=== PATIENT | female | born 1990 | race Caucasian/White ===

== ENCOUNTER → 2016-03-24 | Outpatient (CLI) | payer BC, MEDICAID ==
[~2016-03-24] MED LIST: ABILIFY2 MG PO; ACETAMINOPHEN-H1 TA2 PO; ADIPEX-P37.5 M2 PO; BACTRIM 400 MG-1 TAB PO; BACTRIM DS 8001 TA1 PO; BISOPROLOL 5MG T5 MG PO; BROMFED DM COU118 ML PO; CELEXA20 MG PO; COLACE100 MG PO; DILAUDID4 MG PO; DOXEPIN50 MG PO; FERROUS SULFAT325 M2 PO; FOLIC ACID 1MG T1 MG PO; HYDROCHLOROTH12.5 M2 PO; KEFLEX 500MG.500 MG PO; LAMOTRIGINE100 M1 PO; LEXAPRO 10 MG T10 MG PO; LISINOPRIL2.5 M1 PO; MACROBID 100MG100 M1 PO; MACROBID 100MG100 MG PO; MEDROL 4MG. DOSE4 MG PO; NEXPLANON68 MG ID; NOMEDS; OMEPRAZOLE20 MG PO; PEPCID 20MG TAB20 MG PO; PHENAZOPYRIDIN200 M3 PO; PHENERGAN 25MG.25 M1 PO; PHENERGAN12.5 M2 RC; PRENATAL PLUS1 TA1 PO; PROTONIX 40MG T40 MG PO; SEROQUEL300 MG PO; STOMACH PILL PO; TOPAMAX100 MG PO; TYLENOL W/CODEI1 TA2 PO; VENLAFAXINE HC100 MG PO; VICODIN 5/500 T1 TAB PO; ZITHROMAX Z PA250 MG PO; ZOFRAN ODT4 MG PO
--- NOTE | 2016-03-24 16:39 | RADIOLOGY REPORT PS360 ---
US ABD(COMPLETE-MULTI ORGANS HISTORY: SPIENOMEGALY,BRUISING COMPARISON: None FINDINGS: PANCREAS:Unremarkable. No obvious mass or abnormal fluid collection. No ductal dilatation LIVER:Diffuse hepatic steatosis RIGHT KIDNEY:Unremarkable. Normal size and echogenicity. No hydronephrosis LEFT KIDNEY:Unremarkable. No hydronephrosis. Normal size and echogenicity. GALLBLADDER:Cholecystectomy. Common bile duct normal at 3 mm. AORTA:No evidence of aneurysmal dilatation. SPLEEN:Borderline splenomegaly at 13 cm ASCITES:None demonstrated. IMPRESSION: 1. Fatty liver. 2. Spleen size upper limits of normal
== END ==
LOC: RAD 10:27
DX: R16.1 Splenomegaly, not elsewhere classified (principal); T14.8 Other injury of unspecified body region

== ENCOUNTER → 2016-10-18 | Outpatient (CLI) | payer BC, MEDICAID ==
[2016-10-18 14:39] LABS: LYMPH # 2.6 K/mm3 (0.7-4.5); LYMPH % 32.5 % (10-50.0)
[2016-10-18 14:42] LABS: URINE BILIRUBIN - DIPSTICK NEGATIVE (NEG); URINE BLOOD NEGATIVE (NEG)
[2016-10-18 14:59] LABS: HEMOGLOBIN 13.3 g/dL (12.2-16.2)
[2016-10-18 17:22] LABS: BUN 15 mg/dL (7-18)
[2016-10-18 17:58] LABS: GFR (ESTIMATED) 87 ML/MIN (59-)
== END ==
LOC: LAB 14:00
PROVIDERS: Surgery
DX: R10.9 Unspecified abdominal pain (principal); R11.2 Nausea with vomiting, unspecified; T14.8 Other injury of unspecified body region; R14.0 Abdominal distension (gaseous)

== ENCOUNTER → 2016-10-25 | Outpatient (CLI) | payer BC, MEDICAID ==
--- NOTE | 2016-10-25 13:18 | RADIOLOGY REPORT PS360 ---
UGI SERIES W/SMALL BOWEL HISTORY: ABD PAIN, N/V, HEMATURIA, ABD BLOATING ORDERING PHYSICIAN: RODERICK NORTH MD PATIENT AGE: 26 years COMPARISON: None FINDINGS: The esophagus, stomach, and duodenum have an unremarkable appearance. There is no evidence of hiatal hernia. No ulcer or mass evident. No mucosal abnormalities apparent. There is normal peristalsis. The duodenal C-loop is nondisplaced. SMALL BOWEL FOLLOW-THROUGH: Small bowel has an unremarkable appearance. No obstructing lesions mucosa left amount disease or filling defects are evident. Spot views of the terminal ileum are unremarkable. FLUOROSCOPY TIME : 3 minutes and 3 seconds. IMPRESSION: Negative upper GI and small bowel follow-through
== END ==
LOC: RAD 10:55
DX: R10.9 Unspecified abdominal pain (principal); R11.2 Nausea with vomiting, unspecified; T14.90 Injury, unspecified; R14.0 Abdominal distension (gaseous)

== ENCOUNTER 2017-01-09 15:12 | Emergency (ER) | payer BC, MEDICAID ==
[~2017-01-09] VITALS: Ht 162.6 cm; Wt 113.4 kg
[2017-01-09] MEDS ORDERED: METOPROLOL SUCC50 M4 PO (15:25)
[2017-01-09] MEDS ORDERED: LOSARTAN POTAS100 MG PO (15:25)
[2017-01-09] MEDS ORDERED: PRAZOSIN HCL1 MG PO (15:26)
[2017-01-09] MEDS ORDERED: INDERAL10 MG PO (15:26)
[2017-01-09] MEDS ORDERED: QUETIAPINE FUM200 M1 PO (15:26)
[2017-01-09] MEDS ORDERED: VENLAFAXINE150 M1 PO (15:27)
[2017-01-09] MEDS ORDERED: ETHINYL ESTRADI1 TA1 PO (15:27)
--- NOTE | 2017-01-09 15:48 | Emergency Room Report ---
History of Present Illness Time Seen by [id number] Presenting Problem in Triage Pt arrived:Walked Presenting Problem:PT REPORTS HAS BEEN HAVING PAIN IN THE BACK OF HER HEAD FOR APPROX 1 MONTH PT REPORTS TODAY AROUND 1100 BEGAN HAVING NUMBNESS ALL OVER FACE. PT REPORTS NUMBNESS FEELING IS WORSE ON THE L THAN THE RIGHT. Onset of symptoms date/time:01/09/1708/20/1099 or onset unknown for: Treatment Prior to Arrival: [employer] Provided by: Sepsis Risk Assessment: Temp: 98.0 B/P: 128/81 MAP: 96 Pulse: 103 Resp: 18 Recent fever? N Clinical Suspician of Infection? N Mental Status: 1 - Regular (Normal Baseline) Sepsis Risk:Low Sepsis Risk Have you (or family members/close friends) recently traveled outside the [place]? N If Yes, where/when: Have you had exposure to infectious disease within the past month? N TB? Other? Specify: Posterior headache, worse with palpation of that area, x one month. Denies jaw pain but states her left face felt numb earlier today, but not now. Very gradual onset. Has hx of migraines but posterior pain is new. Pain radiates to posterior head but no neck stiffness or rash. No n/v, no photophobia or syncope, no other neurological sx. No fever. No odontalgia. No trauma. No change in vision. Has not taken anything for headache. ALLERGIES Coded Allergies: ceftriaxone (From Rocephin) (Severe, S-DIFF. BREATHING 04/17/16) lisinopril (FACIAL SWELLING 04/17/16) Home Medications Reported Medications Losartan Potassium (Losartan 100MG) 100 MG PO DAILY #30 Metoprolol Succinate (Metoprolol Succinate XL) 50 MG PO DAILY #30 Propranolol Hcl (Inderal) 10 MG PO DAILY #90 Quetiapine Fumarate 200 MG PO DAILY #30 Prazosin Hcl 1 MG PO QHS #30 NORETHINDRONE AC-ETH ESTRADIOL (Norethind-Eth Estrad 1-0.02 MG) 1 TAB PO QHS #84 VENLAFAXINE HCL (Venlafaxine HCl ER) 150 MG PO QHS #30 History Medical History General CAD? No Angina: No [place]: No Hypertension? Yes Hyperlipidemia? No CHF? No DVT? No PE? No COPD? No Asthma? No Anemia? No GERD? Yes Gastric ulcers? No GI Bleed? No Hernia? No Thyroid Problems? No Hypothyroidism? No CVA? No Seizures? No Diabetes? No Renal Insuffiency? No End Stage Renal Disease? No UTI? No Stones? No BPH? No GB Disease: Yes Nephritic Syndrome? No Asplenia? No Hepatitis? No Sickle Cell Disease? No Arthritis? No Migraines? No Cataracts? No Glaucoma? No MRSA? No HIV? No TB? No Anxiety? No Depression? No Cancer? No More? 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 Now Family History Family Hx Diabetes Yes CAD Yes Hypertension Yes Hyperlipidemia Yes Cancer Yes TB No Social History Smoking Hx Smoker: Never Smoker Tobacco: No Alcohol Alcohol: No Review of Systems All Other Systems Reviewed and Negative Musculoskeletal see HPI Psychiatric/Neurological see HPI Physical Exam Vital Signs Vital Signs Date Time Temp Pulse Resp B/P Pulse O2 O2 Flow FiO2 Ox Delivery Rate 01/09 1706 95 18 114/82 97 01/09 1703 18 01/09 1516 98.0 103 18 128/81 97 General Appearance normal appearance, WD/WN, no apparent distress Eye Exam - bilateral eye normal exam, bilateral eye PERRL, bilateral eye EOMI Neck normal inspection, non-tender, supple, full range of motion, tender posterior scalp with palpation, no visible rashes, no neck stiffness or meningismus but pain radiates to inferior occipital area. Respiratory Status Yes: trachea midline, chest symmetrical, non tender chest. No: respiratory distress, tender on palpation, use of accessory muscles, pain on inspiration, pain on expiration, productive cough, non productive cough. Lung Sounds bilateral: normal breath sounds, lungs clear. 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 Glascow Coma Scale Glascow Coma Scale Response Value EYE response: 4 Spontaneously 4 MOTOR response: 6 OBEYS 6 VERBAL response: 5 Oriented & Converses 5 Total 15 Reflexes DTR 3+ tricep (R), 3+ tricep (L), 3+ ankle (R), 3+ ankle (L) Mental status normal mood/affect Skin intact, normal color, no rash cons.w/shingles (atraumatic) Medical Decision Making LABS/Meds/Orders Pt receiving controlled substance in ED? No Results/Orders Current Medication Orders Sig/Brandon Start time Last Medication Dose Route Stop Time Status Admin Ketorolac 0 .STK-MED ONE 01/09 1702 DC Tromethamine .ROUTE Ketorolac 60 MG ONCE ONE 01/09 1700 DC 01/09 Tromethamine IM 01/09 170 1703 Orders Procedure Date/time Status DIET-NOTHING BY MOUTH 01/09 D Active URINE 01/[address] HEAD REQ 01/[address] SCAN REQ 01/09 1534 Complete XRAY/CT/US XRAY/CT/US CT head, C-spine CT interpretation by reviewed by me (report reviewed) Time results known: 1711 CT Results normal/NAD, muscle spasm, neg acute per report Progress ED Progress Notes Date 01/09/17 Time 171 Comment JOHNSON better; stable at d/c Departure Departure Time of Disposition 1712 Disposition DC Home or Self Care(routine) Clinical Impression Primary Impression: Cephalgia Qualifiers: Headache type: tension-type Headache chronicity pattern: acute headache Intractability: not intractable Qualified Code: G44.209 - Tension-type headache, unspecified, not intractable Condition STABLE Referrals Esau TORRES,A.C. (Family) Patient Instructions Tension Headache Additional Instructions Rx Naproxen, see Dr. Cifuentes next week for follow up Discharge Counseling Counseled pt/family regarding diagnosis, test results, medications/RX, home care, follow up needs Prescriptions Current Visit Scripts NAPROXEN (NAPROXEN 500MG TAB) 500 MG PO BIDP PRN pain #20 TAB ED Critical Care Critical Care No at 1830
--- OUTSIDE RECORDS SUMMARY | 2017-01-09 15:52 | External Medical Summary Rpt | CCD ---
Author Author , GETACHEW Organization [facility] Address Unknown Phone Care Team Providers Care Lease Administrator Name Role Phone A Taylor GARCIA MD PSC, A Unavailable Unavailable Taylor GARCIA MD PSC Shaquille Powell MD, Unavailable Unavailable Shaquille Powell MD [facility] Unavailable Unavailable HOSPITA, [facility] DUANE CAI MD, Unavailable Unavailable DUANE CAI MD [facility] Unavailable Unavailable INC, [facility] Unavailable Unavailable [facility], [facility] Unavailable Unavailable [facility]PITAL P, [facility], [facility]available Unavailable [facility], Unavailable Unavailable [facility] Unavailable Unavailable PHYSICIANS, [facility], [facility]available Unavailable [facility], Unavailable Unavailable [facility] Jeremiah Singletary Unavailable Unavailable BARON TORRES, Jeremiah Singletary III, MD Purpose Continuity of Care Document - 09-01-2012 through 2016 Problems Code Diagnosis DOS Provider Status R945 ABNORMAL 11-02-2016 [facility] LIVER HOSPITA FUNCTION STUDIES I10 ESSENTIAL 10-14-2016 [facility] HYPERTENSIO JODI N K625 HEMORRHAGE 10-14-2016 . [facility] [place] RECTUM JODI [id number] OTHER LONG 10-14-2016 [facility] TERM [place] CURRENT J[place]I DRUG THERAPY R42 DIZZINESS 09-14-2016 Sean PEREZ PSC GIDDINESS R51 HEADACHE 09-14-2016 Sean GARCIA MD PSC [id number] ABRASION OF 09-14-2016 Sean GARCIA RIGHT HAND PSC INITIAL ENCOUNTER [id number] ABRASION 09-14-2016 Sean GARCIA LEFT KNEE [facility] INITIAL ENCOUNTER Z23 ENCOUNTER 09-14-2016 Sean MCGREGOR MD [facility] IMMUNIZATIO N J069 ACUTE UPPER 06-07-2016 [facility] RESPIRATORY INC INFECTION UNSPECIFIED 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 OBSTRUCTIVE 05-27-2016 [facility] SLEEP EAST APNEA ADULT PEDIATRIC M1990 UNSPECIFIED 05-27-2016 [facility] EAST OSTEOARTHRI TIS UNSPECIFIED SITE M2550 PAIN IN 05-27-2016 [facility] UNSPECIFIED EAST JOINT R0602 SHORTNESS 05-27-2016 [facility] OF BREATH EAST R609 EDEMA 05-27-2016 [facility] UNSPECIFIED EAST E663 OVERWEIGHT 05-13-2016 [facility] R109 UNSPECIFIED 04-17-2016 [facility] PAIN INC R233 SPONTANEOUS 04-11-2016 [facility] P [id number] MIGRAINE 03-15-2016 [facility] W/AURA NOT PHYSICIANS INTRACT GROUP W/STATUS MIGRAINOSUS R161 SPLENOMEGAL 03-15-2016 [facility] Y NOT PHYSICIANS ELSEWHERE GROUP CLASSIFIED T148 OTHER 03-15-2016 [facility] INJURY OF PHYSICIANS UNSPECIFIED GROUP BODY REGION E669 OBESITY 01-22-2016 [facility] UNSPECIFIED PHYSICIANS GROUP H539 UNSPECIFIED 12-03-2015 [facility] R200 ANESTHESIA 12-03-2015 [facility] R5383 OTHER 12-03-2015 [facility] R635 ABNORMAL 12-03-2015 [facility] N803 ENDOMETRIOS 12-01-2015 [facility] IS OF PHYSICIANS PELVIC GROUP PERITONEUM R102 PELVIC AND 12-01-2015 [facility] PERINEAL PHYSICIANS PAIN GROUP B372 CANDIDIASIS 11-18-2015 [facility] [id number] PAIN IN 11-18-2015 [facility] M542 CERVICALGIA 11-18-2015 [facility] M549 DORSALGIA 11-18-2015 [facility] G8918 OTHER ACUTE 08-29-2015 [facility] POSTPROCEDU INC RAL PAIN R1011 RIGHT UPPER 08-29-2015 [facility] PA[facility] INC K811 CHRONIC 08-27-2015 [facility] CHOLECYSTIT PHYSICIANS IS GROUP K838 OTHER 08-17-2015 [facility] SPECIFIED PHYSICIANS DISEASES OF GROUP BILIARY TRACT D179 BENIGN 08-12-2015 [facility] LIPOMATOUS PHYSICIANS NEOPLASM GROUP UNSPECIFIED J029 ACUTE 08-01-2015 [facility] PHARYNGITIS PHYSICIANS GROUP UNSPECIFIED K219 GASTRO-ESOP 07-22-2015 [facility] H REFLUX PHYSICIANS DISEASE GROUP WITHOUT ESOPHAGITIS R1012 LEFT UPPER 07-22-2015 [facility] QUADRANT PHYSICIANS PAIN GROUP R112 NAUSEA WITH 07-22-2015 [facility] VOMITING PHYSICIANS UNSPECIFIED GROUP N736 FEMALE 07-08-2015 [facility] PELVIC PHYSICIANS PERITONEAL GROUP ADHESIONS POSTINFECTI VE [id number] CLUSTER 06-24-2015 [facility] HEADACHE [facility] NOT INTRACTABLE N719 INFLAMMATOR 05-14-2015 [facility] R Y DISEASE TRELL TORRES OF UTERUS UNSPECIFIED N939 ABNORMAL 03-13-2015 [facility] PH[facility]ICIANS BLEEDING UNSPECIFIED 5693 HEMORRHAGE 10-30-2014 [facility] OF RECTUM PHYSICIANS AND ANUS GROUP 57283 ABDOMINAL 10-30-2014 [facility] PAIN, LEFT PHYSICIANS LOWER GROUP QUADRANT V7651 SPECIAL 10-30-2014 [facility] SCREENING PHYSICIANS FOR GROUP MALIGNANT NEOPLASMS COLON 276.51 276.51 04-05-2013 [facility] DEHYDRATION [facility] 643.13 643.13 04-05-2013 [facility] HYPEREM W [facility] ART 493.90 493.90 09-01-2012 [facility] ASTHMA, [facility] 891.0 891.0 OPEN 09-01-2012 [facility] KNEE/LEG/AN Hospital KLE E849.0 E849.0 09-01-2012 [facility] ACCIDENT IN [facility] E906.0 E906.0 DOG 09-01-2012 [facility] BITE [facility] Allergies, Adverse Reactions, Alerts Type Drug Allergy Adverse Reaction to Substance Substance Reaction Severity Ceftriaxone Unknown Unknown Medications Na ND Rx Da Fi Fi Am Da Di Ph RX Ph St me C No te ll ll ou ys ag ar # ys at rm s nt no ma ic us Or Da si cy ia de te s n re d QU 16 10 11 30 30 00 RI Ac ET 72 -0 -0 .0 00 TE ti IA 90 6- 3- 00 01 ve PI 14 20 20 19 AI NE 80 17 17 82 D 1 71 PH FU AR MA MA RA CY TE #3 20 93 0 8 MG TA B GA 43 10 10 40 2 00 RI Ac 38 -0 -2 00 00 TE ti LY 60 2- 7- .0 01 ve TE 09 20 20 00 20 AI -G 01 17 17 21 D 9 92 PH SO AR VIDYA MA TI CY ON #3 93 8 LO 65 09 10 30 30 00 RI Ac SA 86 -0 -0 .0 00 TE ti RT 20 7- 6- 00 01 ve AN 20 20 20 18 AI 39 17 17 87 D PO 0 96 PH TA AR SS MA IU CY M 10 #3 0 93 MG 8 TA B ME 62 09 10 30 30 00 RI Ac TO 03 -0 -0 .0 00 TE ti TN 70 7- 6- 00 01 ve OL 83 20 20 18 AI OL 10 17 17 85 D 1 29 PH LUONG AR CC MA CY ER #3 50 93 8 MG TA B QU 16 09 09 30 30 00 RI Ac ET 72 -0 -2 .0 00 TE ti IA 90 5- 9- 00 01 ve PI 14 20 20 19 AI NE 80 17 17 82 D 1 71 PH FU AR MA MA RA CY TE #3 20 93 0 8 MG TA B TN 23 09 09 90 30 00 RI Ac OP 15 -0 -2 .0 00 TE ti RA 50 5- 9- 00 01 ve NO 11 20 20 19 AI LO 00 17 17 82 D L 1 72 PH 10 AR MA MG CY TA #3 BL 93 ET 8 VE 13 09 09 30 30 00 RI Ac NL 81 -0 -2 .0 00 TE ti AF 10 5- 9- 00 01 ve AX 71 20 20 19 AI IN 43 17 17 82 D E 0 73 PH HC AR L MA ER CY 15 #3 0 93 MG 8 TA B DI 00 08 09 12 30 00 RI Ac CY 52 -3 -2 0. 00 TE ti CL 71 0- 2- 00 01 ve OM 28 20 20 0 19 AI IN 20 17 17 76 D E 1 63 PH 20 AR MA MG CY TA #3 BL 93 ET 8 QU 16 08 09 30 30 00 RI Ac ET 71 -1 -0 .0 00 TE ti IA 40 3- 8- 00 01 ve PI 45 20 20 18 AI NE 40 17 17 72 D 1 16 PH FU AR MA MA RA CY TE #3 10 93 0 8 MG TA B LO 65 07 08 30 30 00 RI Ac SA 86 -2 -2 .0 00 TE ti RT 20 8- 5- 00 01 ve AN 20 20 20 18 AI 39 17 17 87 D PO 0 96 PH TA AR SS MA IU CY M 10 #3 0 93 MG 8 TA B VE 13 07 08 30 30 00 RI Ac NL 81 -2 -2 .0 00 TE ti AF 10 8- 5- 00 01 ve AX 71 20 20 17 AI IN 43 17 17 95 D E 0 02 PH HC AR L MA ER CY 15 #3 0 93 MG 8 TA B OM 00 07 08 30 30 00 RI Ac EP 78 -2 -2 .0 00 TE ti RA 12 8- 5- 00 01 ve ZO 23 20 20 18 AI LE 40 17 17 [address] AR MA 40 CY MG #3 93 CA 8 PS UL E ME 62 07 08 30 30 00 RI Ac TO 03 -2 -2 .0 00 TE ti TN 70 8- 5- 00 01 ve OL 83 20 20 18 AI OL 10 17 17 85 D 1 29 PH LUONG AR CC MA CY ER #3 50 93 8 MG TA B ME 65 07 08 30 10 00 RI Ac CL 16 -1 -0 .0 00 TE ti IZ 20 2- 4- 00 01 ve IN 44 20 20 19 AI E 11 17 17 14 D 12 0 92 PH .5 AR MA MG CY TA #3 BL 93 ET 8 QU 16 07 08 30 30 00 RI Ac ET 71 -1 -0 .0 00 TE ti IA 40 0- 4- 00 01 ve PI 45 20 20 18 AI NE 40 17 17 72 D 1 16 PH FU AR MA MA RA CY TE #3 10 93 0 8 MG TA B LO 65 06 07 30 30 00 RI Ac SA 86 -2 -1 .0 00 TE ti RT 20 1- 4- 00 01 ve AN 20 20 20 18 AI 39 17 17 87 D PO 0 96 PH TA AR SS MA IU CY M 10 #3 0 93 MG 8 TA B OM 00 06 07 30 30 00 RI Ac EP 78 -1 -1 .0 00 TE ti RA 12 9- 4- 00 01 ve ZO 23 20 20 18 AI LE 40 17 17 [address] D [address] AR MA 40 CY MG #3 93 CA 8 PS UL E ME 62 06 07 30 30 00 RI Ac TO 03 -1 -1 .0 00 TE ti TN 70 9- 4- 00 01 ve OL 83 20 20 18 AI OL 10 17 17 85 D 1 29 PH LUONG AR CC MA CY ER #3 50 93 8 MG TA B LO 16 06 07 30 30 00 RI Ac SA 71 -1 -1 .0 00 TE ti RT 40 9- 4- 00 01 ve AN 22 20 20 18 AI -H 60 [address] 2 30 PH Z AR 50 MA -1 CY 2. 5 #3 MG 93 8 TA B VE 13 06 07 30 30 00 RI Ac NL 81 -0 -0 .0 00 TE ti AF 10 8- 7- 00 01 ve AX 71 20 20 18 AI IN 43 17 17 72 D E 0 13 PH HC AR L MA ER CY 15 #3 0 93 MG 8 TA B TN 00 06 07 90 30 00 RI Ac OP 37 -0 -0 .0 00 TE ti RA 80 8- 7- 00 01 ve NO 18 20 20 18 AI LO 20 17 17 72 D L 1 15 PH 10 AR MA MG CY TA #3 BL 93 ET 8 QU 16 06 07 30 30 00 RI Ac ET 71 -0 -0 .0 00 TE ti IA 40 8- 7- 00 01 ve PI 45 20 20 18 AI NE 40 17 17 72 D 1 16 PH FU AR MA MA RA CY TE #3 10 93 0 8 MG TA B FL 68 05 06 2. 8 00 RI Ac UC 46 -2 -2 00 00 TE ti ON 20 6- 3- 0 01 ve AZ 10 20 20 18 AI OL 34 17 17 56 D E 0 60 PH 15 AR 0 MA MG CY TA #3 BL 93 ET 8 QU 16 05 06 30 30 00 RI Ac ET 72 -1 -0 .0 00 TE ti IA 90 1- 9- 00 01 ve PI 14 20 20 17 AI NE 70 17 17 95 D 1 01 PH FU AR MA MA RA CY TE #3 10 93 0 8 MG TA B DO 00 04 05 14 7 00 WA Ac XY 71 -2 -1 .0 00 L- ti CY 30 3- 9- 00 06 MA ve CL 42 20 20 11 RT IN 95 17 17 09 E 0 80 PH MO AR NO MA CY 10 0 #5 MG 84 CA P CY 68 04 05 15 5 00 WA Ac CL 64 -2 -1 .0 00 L- ti OB 50 3- 9- 00 06 MA ve EN 51 20 20 11 RT ZA 89 17 17 09 TN 0 81 PH IN AR E MA 10 CY MG #5 84 TA BL ET IB 68 04 05 21 7 00 WA Ac UP 64 -2 -1 .0 00 L- ti RO 50 3- 9- 00 06 MA ve FE 53 20 20 11 RT N 05 17 17 09 60 9 82 PH 0 AR MG MA CY TA BL #5 ET 84 TN 00 04 05 90 30 00 RI Ac OP 37 -1 -0 .0 00 TE ti RA 80 1- 5- 00 01 ve NO 18 20 20 17 AI LO 20 17 17 95 D L 1 00 PH 10 AR MA MG CY TA #3 BL 93 ET 8 QU 16 04 05 30 30 00 RI Ac ET 72 -1 -0 .0 00 TE ti IA 90 1- 5- 00 01 ve PI 14 20 20 17 AI NE 70 17 17 95 D 1 01 PH FU AR MA MA RA CY TE #3 10 93 0 8 MG TA B VE 13 04 05 30 30 00 RI Ac NL 81 -1 -0 .0 00 TE ti AF 10 1- 5- 00 01 ve AX 71 20 20 17 AI IN 43 17 17 95 D E 0 02 PH HC AR L MA ER CY 15 #3 0 93 MG 8 TA B BR 64 04 04 12 2 00 RI Ac OM 37 -0 -2 0. 00 TE ti PH 60 4- 8- 00 01 ve EN 65 20 20 0 17 AI IR 74 17 17 85 D -P 0 16 PH SE AR UD MA OE CY PH ED #3 -D 93 M 8 SY R TN 00 03 04 90 30 00 RI Ac OP 37 -1 -0 .0 00 TE ti RA 80 0- 7- 00 01 ve NO 18 20 20 17 AI LO 20 17 17 46 D L 1 41 PH 10 AR MA MG CY TA #3 BL 93 ET 8 QU 16 03 04 30 30 00 RI Ac ET 72 -1 -0 .0 00 TE ti IA 90 0- 7- 00 01 ve PI 14 20 20 17 AI NE 70 17 17 46 D 1 42 PH FU AR MA MA RA CY TE #3 10 93 0 8 MG TA B HY 00 03 04 [address] 40 -1 -0 .0 00 TE ti OC 60 3- 7- 00 01 ve OD 12 20 20 17 AI ON 30 17 17 50 D -A 1 06 PH CE AR TA MA AL CY NO PH #3 EN 93 8 5- 32 5 IB 53 03 04 40 10 00 RI Ac UP 74 -1 -0 .0 00 TE ti RO 60 3- 7- 00 01 ve FE 46 20 20 17 AI N 50 17 17 50 D 60 1 07 PH 0 AR MG MA CY TA BL #3 ET 93 8 QU 16 02 03 30 30 00 RI Ac ET 72 -2 -2 .0 00 TE ti IA 90 7- 4- 00 01 ve PI 14 20 20 17 AI NE 60 17 17 29 D 1 56 PH FU AR MA MA RA CY TE #3 50 93 8 MG TA B TN 00 02 03 90 30 00 RI Ac OP 37 -1 -1 .0 00 TE ti RA 80 0- 0- 00 01 ve NO 18 20 20 17 AI LO 20 17 17 06 D L 1 31 PH 10 AR MA MG CY TA #3 BL 93 ET 8 VE 13 02 03 30 30 00 RI Ac NL 81 -1 -1 .0 00 TE ti AF 10 0- 0- 00 01 ve AX 71 20 20 17 AI IN 53 17 17 06 D E 0 32 PH HC AR L MA ER CY 22 #3 5 93 MG 8 TA B DO 00 02 03 30 30 00 RI Ac XE 37 -1 -1 .0 00 TE ti PI 84 0- 0- 00 01 ve N 25 20 20 17 AI 50 00 17 17 06 D 1 30 PH MG AR MA CA CY PS UL #3 E 93 8 FL 68 02 03 1. 1 00 RI Ac UC 46 -0 -0 00 00 TE ti ON 20 3- 3- 0 01 ve AZ 10 20 20 16 AI OL 34 17 17 97 D E 0 08 PH 15 AR 0 MA MG CY TA #3 BL 93 ET 8 DO 00 01 02 30 30 00 RI Ac XE 37 -1 -1 .0 00 TE ti PI 86 2- 0- 00 01 ve N 41 20 20 16 AI 10 00 17 17 65 D 0 1 13 PH MG AR MA CA CY PS UL #3 E 93 8 VE 68 01 02 30 30 00 RI Ac NL 38 -1 -1 .0 00 TE ti AF 20 2- 0- 00 01 ve AX 03 20 20 16 AI IN 60 17 17 65 D E 6 14 PH HC AR L MA ER CY 15 #3 0 93 MG 8 CA P AR 65 01 02 30 30 00 RI Ac IP 16 -1 -1 .0 00 TE ti IP 20 2- 0- 00 01 ve RA 90 20 20 16 AI ZO 10 17 17 65 D LE 3 16 PH AR 20 MA CY MG #3 TA 93 BL 8 ET TN 00 01 02 90 30 00 RI Ac OP 37 -1 -1 .0 00 TE ti RA 80 2- 0- 00 01 ve NO 18 20 20 16 AI LO 20 17 17 65 D L 1 17 PH 10 AR MA MG CY TA #3 BL 93 ET 8 BU 00 01 02 30 5 00 RI Ac TA 59 -1 -0 .0 00 TE ti LB 12 0- 3- 00 01 ve -A 64 20 20 16 AI CE 00 17 17 61 D TA 1 87 PH AL AR N- MA CA CY FF #3 50 93 -3 8 00 -4 0 OX 00 12 01 6. 1 00 WA Ac YC 40 -2 -2 00 00 L- ti OD 60 7- 0- 0 02 MA ve ON 51 20 20 39 RT E- 20 16 17 25 AC 1 71 PH ET AR AM MA IN CY OP HE #5 N 84 5- 32 5 NI 47 12 01 14 7 00 WA Ac TR 78 -2 -2 .0 00 L- ti OF 10 7- 0- 00 06 MA ve UR 30 20 20 08 RT AN 30 16 17 23 TO 1 12 PH IN AR MA MO CY NO -M #5 CR 84 10 0 MG VE 68 12 01 30 30 00 RI Ac NL 38 -1 -0 .0 00 TE ti AF 20 4- 9- 00 01 ve AX 03 20 20 16 AI IN 50 16 17 25 D E 6 39 PH HC AR L MA ER CY 75 #3 93 MG 8 CA P HY [address] 07 -3 OX 90 0- Lo YZ 07 20 ng IN 72 14 er E 0 PA Ac M ti 25 ve MG CA P TN 00 01 1 No OM 64 -3 ET 11 0- Lo JOHNSON 49 20 ng ZI 53 14 er NE 5 Ac 25 ti ve MG /M L AM PU L M. 61 01 1 No V. 70 -3 I. 30 0- Lo 42 20 ng AD 28 14 er UL 2 T Ac ti AL ve LA [address] 40 -3 AT 97 0- Lo ED 95 20 ng 30 14 er RI 9 NG Ac ER ti S ve IN JE CT IO N LA [address] 40 -2 AT 97 9- Lo ED 95 20 ng 30 14 er RI 9 NG Ac ER ti S ve IN JE CT IO N SO 00 01 2 No DI 40 -2 UM 97 9- Lo 98 20 ng CH 30 14 er LO 9 RI Ac DE ti ve 0. 9% SO VIDYA TI ON Sa 63 01 1 No li 80 -2 ne 70 9- Lo 10 20 ng Fl 07 14 er us 5 h Ac 10 ti ML ve Sy ri ng e TN 00 01 0 No OM 64 -2 ET 11 9- Lo JOHNSON 49 20 ng ZI 53 14 er NE 5 Ac 25 ti ve MG /M L AM PU L Sa 63 01 1 No li 80 -2 ne 70 9- Lo 10 20 ng Fl 07 14 er us 5 h Ac 10 ti ML ve Sy ri ng e MA 00 01 2 No PA 90 -2 P 41 9- Lo 32 98 20 ng 5 26 14 er MG 1 Ac TA ti BL ve ET AD 49 06 0 No AC 28 -2 EL 10 9- Lo 40 20 ng TD 01 13 er AP 0 Ac ti AL ve LI 00 06 0 No DO 40 -2 CA 94 9- Lo IN 27 20 ng E 60 13 er HC 2 L Ac 1% ti ve AL Vital Signs 04-03-2013 21:37 Name Value Interpretat Reference Comment ion Range Body 98.9 [degF] Temperature BP 57 mm[Hg] Diastolic BP Systolic 104 mm[Hg] Heart 73 /min Rate/Pulse O2% 97 % Respiratory 16 /min Rate 04-03-2013 18:21 Name Value Interpretat Reference Comment ion Range Body 98.9 [degF] Temperature BP 84 mm[Hg] Diastolic BP Systolic 126 mm[Hg] Heart 90 /min Rate/Pulse O2% 98 % Respiratory 18 /min Rate Weight 0 [oz_av] Measured Weight 84.369 kg Measured 09-01-2012 18:11 Name Value Interpretat Reference Comment ion Range BP 75 mm[Hg] Diastolic BP Systolic 139 mm[Hg] Heart 80 /min Rate/Pulse O2% 100 % Respiratory 20 /min Rate 09-01-2012 17:47 Name Value Interpretat Reference Comment ion Range Body 99 [degF] Temperature BP 75 mm[Hg] Diastolic BP Systolic 122 mm[Hg] Heart 90 /min Rate/Pulse O2% 99 % Respiratory 16 /min Rate Results Labs Lab Lab Date Result Refere Interp Status Commen Order Detail nces retati t Range on BASIC METABOLIC PANEL (04-04-2013 06:20) Glucose 79 74-106 complet 014 mg/dL ed Bld-mCn 06:20 c BUN 10 7-18 complet Bld-mCn 014 mg/dL ed c 06:20 Creat 0.7 0.6-1.0 complet SerPl-m 014 mg/dL ed Cnc 06:20 GFR/BSA 106 59- complet .pred 014 ML/MIN ed SerPl 06:20 Schwart z-vRate Sodium 139 136-145 complet SerPl-s 014 mmoL/L ed Cnc 06:20 Potassi 3.6 3.5-5.1 complet um 014 mmoL/L ed SerPl-s 06:20 Cnc Chlorid 106 98-107 complet e 014 mmoL/L ed SerPl-s 06:20 Cnc CO2 26 21.0-32 complet SerPl-s 014 mmoL/L .0 ed Cnc 06:20 Calcium 8.1 8.5-10. complet 014 mg/dL 1 ed SerPl-m 06:20 Cnc CBC with AUTO DIFF (04-04-2013 06:20) WBC # 10.2 4.8-10. complet Bld 014 K/MM3 8 ed Auto 06:20 RBC # 4.16 4.2-5.4 complet Bld 014 M/mm3 ed Auto 06:20 Hgb 12.2 12.2-16 complet Bld-mCn 014 g/dL .2 ed c 06:20 Hct Fr 35.3 % 37.0-47 complet Bld 014 .0 ed 06:20 MCV RBC 84.9 fl 82.2-97 complet 014 .8 ed 06:20 MCH RBC 29.3 pg 27-31.2 complet Qn 014 ed Auto 06:20 MEAN 34.5 31.8-35 complet CORPUSC 014 g/dl .4 ed ULAR 06:20 HGB CONC RDW RBC 13.8 % 11.5-17 complet Auto 014 .5 ed 06:20 Platele 257 142-424 complet t Bld 014 K/mm3 ed Ql 06:20 Manual MEAN 7.8 fl 7.4-10. complet PLATELE 014 4 ed T 06:20 VOLUME Granulo 67.8 % 37.0-80 complet cytes 014 .0 ed Fr Bld 06:20 Auto LYMPH % 25.4 % 10-50.0 complet 014 ed 06:20 Monocyt 4.1 % 1.7-9.3 complet es Fr 014 ed Bld 06:20 Auto Eosinop 2 2.4 % 0.1-12. complet hil Fr 014 0 ed Bld 06:20 Auto Basophi 04-04-2 0.4 % 0.1-2.0 complet ls Fr 014 ed Bld 06:20 Auto Granulo 6.9 1.8-7.8 complet cytes # 014 K/mm3 ed Bld 06:20 Auto Lymphoc 2 2.6 0.7-4.5 complet ytes Fr 014 K/mm3 ed Bld 06:20 Auto Monocyt 04-04-2 0.4 0.1-1.0 complet es # 014 K/mm3 ed Bld 06:20 Auto Eosinop 0.2 0.0-0.4 complet hil # 014 K/mm3 ed Bld 06:20 Auto Basophi 0.0 0-0.2 complet ls # 014 K/MM3 ed Bld 06:20 Auto THYROID STIM HORMONE (04-03-2013 19:05) THYROID 0.23 0.358-3 complet STIM 014 uIU/ml .740 ed HORMONE 19:05 T4 Free SerPl-mCnc (04-03-2013 19:05) T4 Free 1.05 0.76-1. complet 014 ng/dL 46 ed SerPl-m 19:05 Cnc COMPREHENSIVE METABOLIC PANEL (04-03-2013 19:04) Glucose 79 74-106 complet 014 mg/dL ed Bld-mCn 19:04 c BUN 14 7-18 complet Bld-mCn 014 mg/dL ed c 19:04 Creat 0.8 0.6-1.0 complet SerPl-m 014 mg/dL ed Cnc 19:04 GFR/BSA 91 59- complet .pred 014 ML/MIN ed SerPl 19:04 Schwart z-vRate Sodium 138 136-145 complet SerPl-s 014 mmoL/L ed Cnc 19:04 Potassi 3.6 3.5-5.1 complet um 014 mmoL/L ed SerPl-s 19:04 Cnc Chlorid 101 98-107 complet e 014 mmoL/L ed SerPl-s 19:04 Cnc CO2 25 21.0-32 complet SerPl-s 014 mmoL/L .0 ed Cnc 19:04 Calcium 8.9 8.5-10. complet 014 mg/dL 1 ed SerPl-m 19:04 Cnc Prot 7.6 6.4-8.2 complet SerPl-m 014 gm/dL ed Cnc 19:04 Albumin 3.9 3.4-5.0 complet 014 gm/dL ed SerPl-m 19:04 Cnc Globuli 3.7 1.3-3.2 complet n 014 gm/dL ed Ser-mCn 19:04 c Albumin 1.1 UNK 1.1-1.8 complet /Glob 014 ed SerPl-m 19:04 Rto Bilirub 0.2 0.2-1.0 complet 014 mg/dL ed SerPl-m 19:04 Cnc AST 14 U/L 15-37 complet SerPl-c 014 ed Cnc 19:04 ALT 21 U/L 12-78 complet SerPl-c 014 ed Cnc 19:04 ALP 91 U/L 50-136 complet SerPl-c 014 ed Cnc 19:04 URIC ACID (04-03-2013 19:04) URIC 4.0 2.6-7.2 complet ACID 014 mg/dL ed 19:04 CBC with AUTO DIFF (04-03-2013 19:04) WBC # 04-03- 12.5 4.8-10. complet Bld 014 K/MM3 8 ed Auto 19:04 RBC # 4.93 4.2-5.4 complet Bld 014 M/mm3 ed Auto 19:04 Hgb 14.3 12.2-16 complet Bld-mCn 014 g/dL .2 ed c 19:04 Hct Fr 41.5 % 37.0-47 complet Bld 014 .0 ed 19:04 MCV RBC 84.3 fl 82.2-97 complet 014 .8 ed 19:04 MCH RBC 29.0 pg 27-31.2 complet Qn 014 ed Auto 19:04 MEAN 34.5 31.8-35 complet CORPUSC 014 g/dl .4 ed ULAR 19:04 HGB CONC RDW RBC 14.0 % 11.5-17 complet Auto 014 .5 ed 19:04 Platele 314 142-424 complet t Bld 014 K/mm3 ed Ql 19:04 Manual MEAN 7.5 fl 7.4-10. complet PLATELE 014 4 ed T 19:04 VOLUME Granulo 69.3 % 37.0-80 complet cytes 014 .0 ed Fr Bld 19:04 Auto LYMPH % 24.2 % 10-50.0 complet 014 ed 19:04 Monocyt 4.0 % 1.7-9.3 complet es Fr 014 ed Bld 19:04 Auto Eosinop 2.0 % 0.1-12. complet hil Fr 014 0 ed Bld 19:04 Auto Basophi 0.5 % 0.1-2.0 complet ls Fr 014 ed Bld 19:04 Auto Granulo 8.7 1.8-7.8 complet cytes # 014 K/mm3 ed Bld 19:04 Auto Lymphoc 3.0 0.7-4.5 complet ytes Fr 014 K/mm3 ed Bld 19:04 Auto Monocyt 0.5 0.1-1.0 complet es # 014 K/mm3 ed Bld 19:04 Auto Eosinop 0.3 0.0-0.4 complet hil # 014 K/mm3 ed Bld 19:04 Auto Basophi 0.1 0-0.2 complet ls # 014 K/MM3 ed Bld 19:04 Auto URINALYSIS/COMPLETE (04-03-2013 18:35) URINE YELLOW YELLOW complet COLOR 014 ed 18:35 URINE CLEAR CLEAR complet APPEARA 014 ed NCE 18:35 URINE NEGATIV NEG complet GLUCOSE 014 E ed - 18:35 DIPSTIC K URINE NEGATIV NEG complet BILIRUB 014 E ed IN - 18:35 DIPSTIC K URINE NEGATIV NEG complet KETONE 014 E mg/dL ed 18:35 URINE 1.025 1.005-1 complet SPECIFI 014 UNK .030 ed C 18:35 GRAVITY URINE NEGATIV NEG complet BLOOD 014 E ed 18:35 URINE 6.0 UNK 5.0-8.5 complet PH 014 ed 18:35 URINE NEGATIV NEG complet PROTEIN 014 E mg/dL ed - 18:35 DIPSTIC K URINE 0.2 NEG complet UROBILI 014 E.U./dL ed NOGEN - 18:35 DIPSTIC K URINE NEGATIV NEG complet NITRATE 014 E ed - 18:35 DIPSTIC K URINE NEGATIV NEG complet LEUK 014 E ed ESTERAS 18:35 E URINE OCC 0 complet RBC 014 rbc/hpf ed 18:35 URINE OCC 0-5 complet SQUAMOU 014 #/hpf ed S CELLS 18:35 URINE TRACE O complet BACTERI 014 ed A 18:35 Procedures Procedure DOS Code Location Performer Comment CLOSURE 86.59 [facility] DELGADO III Encounters Encounter Start End Date Code Location Performer Type Date [facility] [place] [address] [address] [facility] [place] [address] 7 [facility] [place] - [facility] [address] [facility] [place] [address] 7 [facility] [place] - 7 7 [facility] [place] - 6 6 [facility] [place] - 6 6 [facility] [place] - [facility] 6 [facility] Inpatient ROSALIO Powell MD (IN) 4 18:46 4 08:45 [facility] JAIDA Singletary (ER) 3 17:05 3 18:12 [facility] Jeremiah Soria
--- OUTSIDE RECORDS SUMMARY | 2017-01-09 15:52 | External Medical Summary Rpt | CCD ---
Author Author , GETACHEW Organization JOSÉ MIGUELLEOP[facility]DO Address Unknown Phone Care Team Providers Care Consulting Services Manager Name Role Phone A Taylor GARCIA MD PSC, A Unavailable Unavailable Taylor GARCIA MD PSC Shaquille Powell MD, Unavailable Unavailable Shaquille Powell MD [facility] Unavailable Unavailable HOSPITA, [facility] DUANE CAI MD, Unavailable Unavailable DUANE CAI MD [facility] Unavailable Unavailable INC, [facility] Unavailable Unavailable HOSPITAL, [facility] Unavailable Unavailable HOSPITAL P, [facility], [facility]available Unavailable [facility], Unavailable Unavailable [facility] Unavailable Unavailable PHYSICIANS, [facility], Unavailable Unavailable [facility], Unavailable Unavailable [facility] Jeremiah Singletary Unavailable Unavailable BARON TORRES, Jeremiah Singletary III, MD Purpose Continuity of Care Document - 09-01-2012 through 2016 Problems Code Diagnosis DOS Provider Status R945 ABNORMAL 11-02-2016 [place] RESULTS OF [facility] LIVER [facility]OSP[facility] FUNCTION STUDIES I10 ESSENTIAL 10-14-2016 [facility] HYPERTENSIO JODI N K625 HEMORRHAGE 10-14-2016 . [facility] RECTUM JODI [id number] OTHER LONG 10-14-2016 [facility] TERM [place] CURRENT JODI DRUG THERAPY R42 DIZZINESS 09-14-2016 Sean PEREZ [facility] GIDDINESS R51 HEADACHE 09-14-2016 Sean GARCIA MD P[facility] [id number] ABRASION OF 09-14-2016 Sean GARCIA RIGHT HAND [facility] INITIAL ENCOUNTER [id number] ABRASION 09-14-2016 Sean GARCIA LEFT KNEE [facility] INITIAL ENCOUNTER Z23 ENCOUNTER 09-14-2016 Sean MCGREGOR MD [facility] IMMUNIZATIO N J069 ACUTE UPPER 06-07-2016 [facility] RESPIRATORY INC INFECTION UNSPECIFIED E282 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 G4733 OBSTRUCTIVE 05-27-2016 [facility] SLEEP EAST APNEA ADULT PEDIATRIC M1990 UNSPECIFIED 05-27-2016 [facility] EAST OSTEOARTHRI TIS UNSPECIFIED SITE M2550 PAIN IN 05-27-2016 [facility] UNSPECIFIED EAST JOINT R0602 SHORTNESS 05-27-2016 [facility] OF BREATH EAST R609 EDEMA 05-27-2016 [facility] UNSPECIFIED EAST E663 OVERWEIGHT 05-13-2016 [facility] R109 UNSPECIFIED 04-17-2016 [place] ABDOMINAL [facility] PAIN INC R233 SPONTANEOUS 04-11-2016 [facility] P [id number] MIGRAINE 03-15-2016 [facility] W/AURA NOT PHYSICIANS INTRACT GROUP W/STATUS MIGRAINOSUS R161 SPLENOMEGAL 03-15-2016 [facility] Y NOT PHYSICIANS ELSEWHERE GROUP CLASSIFIED T148 OTHER 03-15-2016 [facility] INJURY OF PHYSICIANS UNSPECIFIED GROUP BODY REGION E669 OBESITY 01-22-2016 [facility] UNSPECIFIED PHYSICIANS GROUP H539 UNSPECIFIED 12-03-2015 [facility] R200 ANESTHESIA 12-03-2015 [facility] R5383 OTHER 12-03-2015 [facility] R635 ABNORMAL 12-03-2015 [place] WEIGHT GAIN [facility] N803 ENDOMETRIOS 12-01-2015 [facility] IS OF PHYSICIANS PELVIC GROUP PERITONEUM R102 PELVIC AND 12-01-2015 [facility] PERINEAL PHYSICIANS PAIN GROUP B372 CANDIDIASIS 11-18-2015 [facility] [id number] PAIN IN 11-18-2015 [facility] [place] M542 CERVICALGIA 11-18-2015 [facility] M549 DORSALGIA 11-18-2015 [facility] G8918 OTHER ACUTE 08-29-2015 [facility]OSP POSTPROCEDU INC RAL PAIN R1011 RIGHT UPPER 08-29-2015 [place] [facility] PAIN INC K811 CHRONIC 08-27-2015 [facility] CHOLECYSTIT PHYSICIANS IS GROUP K838 OTHER 08-17-2015 [facility] SPECIFIED PHYSICIANS DISEASES OF GROUP BILIARY TRACT D179 BENIGN 08-12-2015 [facility] LIPOMATOUS PHYSICIANS NEOPLASM GROUP UNSPECIFIED J029 ACUTE 08-01-2015 [facility] PHARYNGITIS PHYSICIANS GROUP UNSPECIFIED K219 GASTRO-ESOP 07-22-2015 [facility] H REFLUX PHYSICIANS DISEASE GROUP WITHOUT ESOPHAGITIS R1012 LEFT UPPER 07-22-2015 [facility] QUADRANT PHYSICIANS PAIN GROUP R112 NAUSEA WITH 07-22-2015 [facility] VOMITING PHYSICIANS UNSPECIFIED GROUP N736 FEMALE 07-08-2015 [facility] PELVIC PHYSICIANS PERITONEAL GROUP ADHESIONS POSTINFECTI VE [id number] CLUSTER 06-24-2015 [place] HEADACHE [facility] UNS NOT INTRACTABLE N719 INFLAMMATOR 05-14-2015 DUANE R Y DISEASE TRELL TORRES OF UTERUS UNSPECIFIED N939 ABNORMAL 03-13-2015 [facility] VAGINAL PHYSICIANS BLEEDING UNSPECIFIED 5693 HEMORRHAGE 10-30-2014 [facility] OF RECTUM PHYSICIANS AND ANUS GROUP 87670 ABDOMINAL 10-30-2014 [facility] PAIN, LEFT PHYSICIANS LOWER GROUP QUADRANT V7651 SPECIAL 10-30-2014 [facility] SCREENING PHYSICIANS FOR GROUP MALIGNANT NEOPLASMS COLON 276.51 276.51 04-05-2013 [place] DEHYDRATION [facility] [phone] 04-05-2013 [place] HYPEREM [facility] ART 493.90 493.90 09-01-2012 [place] ASTHMA, [facility] 891.0 891.0 OPEN 09-01-2012 [facility] KNEE/LEG/AN Hospital KLE E849.0 E849.0 09-01-2012 [place] ACCIDENT IN [facility] E906.0 E906.0 DOG 09-01-2012 [place] BITE [facility] Allergies, Adverse Reactions, Alerts Type Drug [...] 03 -0 -0 .0 00 TE ti AK 70 7- 6- 00 01 ve OL [...] 20 93 0 8 MG TA B AK 23 09 09 90 30 00 RI [...] 03 -2 -2 .0 00 TE ti AK 70 8- 5- 00 01 ve OL [...] 03 -1 -1 .0 00 TE ti AK 70 9- 4- 00 01 ve OL [...] #3 0 93 MG 8 TA B AK 00 06 07 90 30 00 RI [...] 11 RT ZA 89 17 17 09 AK 0 81 PH IN AR E MA [...] MA CY TA BL #5 ET 84 AK 00 04 05 90 30 00 RI [...] #3 -D 93 M 8 SY R AK 00 03 04 90 30 00 RI [...] 1 06 PH CE AR TA MA VA CY NO PH #3 EN 93 8 [...] #3 50 93 8 MG TA B AK 00 02 03 90 30 00 RI [...] MG #3 TA 93 BL 8 ET AK 00 01 02 90 30 00 RI [...] 17 61 D TA 1 87 PH VA AR N- MA CA CY FF #3 [...] M ti 25 ve MG CA P AK 00 01 1 No OM 64 -3 [...] ti ML ve Sy ri ng e AK 00 01 0 No OM 64 -2 [...] End Date Code Location Performer Type Date [facility] [place] [address] [address] [facility] [place] [address] 7 [facility] [place] [facility] 7 [facility] [place] [address] [facility] [place] - 7 7 [facility] [place] - [place] 6 [facility] [place] 6 [facility] [place] [facility] 6 [facility] T Inpatient ROSALIO Powell MD (IN) 4 18:46 4 08:45 [facility] JAIDA Singletary (ER) 3 17:05 3 18:12 [facility] Jeremiah Soria
--- OUTSIDE RECORDS SUMMARY | 2017-01-09 15:55 | External Medical Summary Rpt | CCD ---
Author Author , GETACHEW Organization GETACHEW Address Unknown Phone [email or web address] Medical Immunization Name Date Rout CVX Reac Dose Comm Prov Is Faci e tion ent ider Refu lity Give sed n Hep 04-2 8 999 Hist H149 No H149 B, 0-20 oric ped/ 04 al adol Info rmat ion - Sour ce Unsp ecif ied Hep 09-1 8 999 Hist H149 No H149 B, 5-20 oric ped/ 03 al adol Info rmat ion - Sour ce Unsp ecif ied Td 07-1 9 999 Hist H149 No H149 (eduardo 5-20 oric lt), 03 al Info adso rmat rbed ion - Sour ce Unsp ecif ied Hep 07-1 8 999 Hist H149 No H149 B, 5-20 oric ped/ 03 al adol Info rmat ion - Sour ce Unsp ecif ied DTaP 08-0 107 999 Hist H149 No H149 , UF 6-19 oric 96 al Info rmat ion - Sour ce Unsp ecif ied MMR 08-0 3 999 Hist H149 No H149 6-19 oric 96 al Info rmat ion - Sour ce Unsp ecif ied Johnathon 08-0 2 999 Hist H149 No H149 o-OP 6-19 oric V 96 al Info rmat ion - Sour ce Unsp ecif ied
--- OUTSIDE RECORDS SUMMARY | 2017-01-09 15:55 | External Medical Summary Rpt | CCD ---
Author Author , GETACHEW Ibrahim GETACHEW Address Unknown Phone [email or web address] Care Team Providers Care Rn Burn Name Role Phone A Taylor GARCIA MD PSC, A Unavailable Unavailable Taylor GARCIA MD [facility] Unavailable Unavailable HOSPITA, [facility] DUANE CAI MD, Unavailable Unavailable DUANE CAI MD [facility] Unavailable Unavailable INC, [facility] Unavailable Unavailable HOSPITAL, [facility] Unavailable Unavailable HOSPITAL P, [facility], Unavailable Unavailable [facility], [facility]available Unavailable [facility] Unavailable [facility]available PHYSICIANS, [facility]YSICIANS [facility], Unavailable Unavailable [facility], Unavailable Unavailable [facility] Purpose Continuity of Care Document - 10-30-2014 through 2016 Problems Code Diagnosis DOS Provider Status R945 ABNORMAL 11-02-2016 [place] RESULTS OF [facility] LIVER [facility] FUNCTION STUDIES I10 ESSENTIAL 10-14-2016 [facility] HYPERTENSIO JODI N K625 HEMORRHAGE 10-14-2016 [facility] JODI [id number] OTHER LONG 10-14-2016 [facility] CURRENT JODI DRUG THERAPY R42 DIZZINESS 09-14-2016 Sean PEREZ [facility] GIDDINESS R51 HEADACHE 09-14-2016 Sean GARCIA MD [facility] [id number] ABRASION OF 09-14-2016 Sean GARCIA RIGHT HAND [facility] INITIAL ENCOUNTER [id number] ABRASION 09-14-2016 A Taylor GARCIA LEFT KNEE [facility] INITIAL ENCOUNTER Z23 ENCOUNTER 09-14-2016 Sean MCGREGOR MD [facility] IMMUNIZATIO N J069 ACUTE UPPER 06-07-2016 [facility] RESPIRATORY INC INFECTION UNSPECIFIED 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 OBSTRUCTIVE 05-27-2016 [facility] SLEEP EAST APNEA ADULT PEDIATRIC M1990 UNSPECIFIED 05-27-2016 [facility] OSTEOARTHRI TIS UNSPECIFIED SITE M2550 PAIN IN 05-27-2016 [facility] UNSPECIFIED [facility] JOINT R0602 SHORTNESS 05-27-2016 [facility] OF BREATH EAST R609 EDEMA 05-27-2016 [facility] UNSPECIFIED [facility] E663 OVERWEIGHT 05-13-2016 [facility] R109 UNSPECIFIED 04-17-2016 [place] [facility] PAIN INC R233 SPONTANEOUS 04-11-2016 [place] ECCHYMOSES [facility] P [id number] MIGRAINE 03-15-2016 [facility] W/AURA NOT PHYSICIANS INTRACT GROUP W/STATUS MIGRAINOSUS R161 SPLENOMEGAL 03-15-2016 [facility] Y NOT PHYSICIANS ELSEWHERE GROUP CLASSIFIED T148 OTHER 03-15-2016 [facility] INJURY OF PHYSICIANS UNSPECIFIED GROUP BODY REGION E669 OBESITY 01-22-2016 [facility] UNSPECIFIED PHYSICIANS GROUP H539 UNSPECIFIED 12-03-2015 [facility] R200 ANESTHESIA 12-03-2015 [facility] R5383 OTHER 12-03-2015 [facility] R635 ABNORMAL 12-03-2015 [place] WEIGHT GAIN [facility] N803 ENDOMETRIOS 12-01-2015 [facility] IS OF PHYSICIANS PELVIC GROUP PERITONEUM R102 PELVIC AND 12-01-2015 [facility] PERINEAL PHYSICIANS PAIN GROUP B372 CANDIDIASIS 11-18-2015 [facility] S51973 PAIN IN 11-18-2015 [facility] M542 CERVICALGIA 11-18-2015 [facility] M549 DORSALGIA 11-18-2015 [facility] G8918 OTHER ACUTE 08-29-2015 [facility] HOSP POSTPROCEDU INC RAL PAIN R1011 RIGHT UPPER 08-29-2015 [place] [facility] PAIN INC K811 CHRONIC 08-27-2015 [facility] CHOLECYSTIT PHYSICIANS IS GROUP K838 OTHER 08-17-2015 [facility] SPECIFIED PHYSICIANS DISEASES OF GROUP BILIARY TRACT D179 BENIGN 08-12-2015 [facility] LIPOMATOUS PHYSICIANS NEOPLASM GROUP UNSPECIFIED J029 ACUTE 08-01-2015 [facility] PHARYNGITIS PHYSICIANS GROUP UNSPECIFIED K219 GASTRO-ESOP 07-22-2015 [facility] H REFLUX PHYSICIANS DISEASE GROUP WITHOUT ESOPHAGITIS R1012 LEFT UPPER 07-22-2015 [facility] QU[facility]ANT PHYSICIANS PAIN GROUP R112 NAUSEA WITH 07-22-2015 [facility] VOMITING PHYSICIANS UNSPECIFIED GROUP N736 FEMALE 07-08-2015 [facility] PELVIC PHYSICIANS PERITONEAL GROUP ADHESIONS POSTINFECTI VE [id number] CLUSTER 06-24-2015 [facility] UNS NOT INTRACTABLE N719 INFLAMMATOR 05-14-2015 DUANE CAI MD OF UTERUS UNSPECIFIED N939 ABNORMAL 03-13-2015 [facility] VAGINAL PHYSICIANS BLEEDING UNSPECIFIED 5693 HEMORRHAGE 10-30-2014 [facility] OF RECTUM PHYSICIANS AND ANUS GROUP 92721 ABDOMINAL 10-30-2014 [facility] PAIN, LEFT PHYSICIANS LOWER GROUP QUADRANT V7651 SPECIAL 10-30-2014 [facility] SCREENING PHYSICIANS FOR GROUP MALIGNANT NEOPLASMS COLON Medications Na ND Rx Da Fi Fi [...] 03 -0 -0 .0 00 TE ti CO 70 7- 6- 00 01 ve OL [...] 20 93 0 8 MG TA B CO 23 09 09 90 30 00 RI [...] 03 -2 -2 .0 00 TE ti CO 70 8- 5- 00 01 ve OL 83 20 20 18 AI OL 10 17 17 85 D 1 29 PH LUONG AR CC MA CY ER #3 50 93 8 MG TA B QU 16 07 08 30 30 00 RI Ac ET 71 -1 -0 .0 00 TE ti IA 40 0- 4- 00 01 ve PI 45 20 20 18 AI NE 40 17 17 72 D 1 16 PH FU AR MA MA RA CY TE #3 10 93 0 8 MG TA B ME 65 07 08 30 10 00 RI Ac CL 16 -1 -0 .0 00 TE ti IZ 20 2- 4- 00 01 ve IN 44 20 20 19 AI E 11 17 17 14 D 12 0 92 PH .5 AR MA MG CY TA #3 BL 93 ET 8 OM 00 06 07 30 30 00 [...] 03 -1 -1 .0 00 TE ti CO 70 9- 4- 00 01 ve OL [...] 5 #3 MG 93 8 TA B LO 65 06 07 30 30 00 RI Ac SA 86 -2 -1 .0 00 TE ti RT 20 1- 4- 00 01 ve AN 20 20 20 18 AI 39 17 17 87 D PO 0 96 PH TA AR SS MA IU CY M 10 #3 0 93 MG 8 TA B VE 13 06 07 30 30 00 RI Ac NL 81 -0 -0 .0 00 TE ti AF 10 8- 7- 00 01 ve AX 71 20 20 18 AI IN 43 17 17 72 D E 0 13 PH HC AR L MA ER CY 15 #3 0 93 MG 8 TA B CO 00 06 07 90 30 00 RI [...] 11 RT ZA 89 17 17 09 CO 0 81 PH IN AR E MA [...] MA CY TA BL #5 ET 84 CO 00 04 05 90 30 00 RI [...] #3 -D 93 M 8 SY R HY 00 03 04 30 4 00 [...] CY TA BL #3 ET 93 8 CO 00 03 04 90 30 00 RI [...] 10 93 0 8 MG TA B QU 16 02 03 30 30 00 RI Ac ET 72 -2 -2 .0 00 TE ti IA 90 7- 4- 00 01 ve PI 14 20 20 17 AI NE 60 17 17 29 D 1 56 PH FU AR MA MA RA CY TE #3 50 93 8 MG TA B CO 00 02 03 90 30 00 RI [...] MG #3 TA 93 BL 8 ET CO 00 01 02 90 30 00 RI [...] 75 #3 93 MG 8 CA P Encounters Encounter Start End Date Code Location Performer Type Date [facility] [place] [address] [address] [facility] [place] [address] 7 [facility] [place] [facility] [place] [address] [facility] [place] - [facility] 7 [facility] [place] [facility] [place] [facility] [place] [facility]
--- OUTSIDE RECORDS SUMMARY | 2017-01-09 15:55 | External Medical Summary Rpt | CCD ---
Author Author , GETACHEW Organization GETACHEW Address Unknown Phone [email or web address] Immunization Name Date Rout CVX Reac Dose [...]
--- OUTSIDE RECORDS SUMMARY | 2017-01-09 15:55 | External Medical Summary Rpt | CCD ---
Author Author , GETACHEW Ibrahim GETACHEW Address Unknown Phone [email or web address] Care Team Providers Care Certified Surgical Technologist Name Role Phone A Taylor GARCIA MD PSC, A Unavailable Unavailable Taylor GARCIA MD [facility] Unavailable Unavailable HOSPITA, [facility] DUANE CAI MD, Unavailable Unavailable DUANE CAI MD [facility] Unavailable Unavailable INC, [facility] Unavailable [facility]available HOSPITAL, [facility] Unavailable Unavailable HOSPITAL P, [facility], [facility]available Unavailable [facility], [facility]available [facility]available [facility] Unavailable [facility]available PHYSICIANS, [facility], Unavailable [facility]available [facility], Unavailable Unavailable [facility] Purpose Continuity of Care Document - 10-30-2014 through 2016 Problems Code Diagnosis DOS Provider Status R945 ABNORMAL 11-02-2016 [place] RESULTS OF [facility] LIVER HOSPITA FUNCTION STUDIES I10 ESSENTIAL 10-14-2016 [facility] HYPERTENSIO JODI N K625 HEMORRHAGE 10-14-2016 [facility] RECT[facility] JODI [id number] OTHER LONG 10-14-2016 [facility] CURRENT JODI DRUG THERAPY R42 DIZZINESS 09-14-2016 Sean PEREZ [facility] GIDDINESS R51 HEADACHE 09-14-2016 Sean GARCIA MD [facility] [id number] ABRASION OF 09-14-2016 Sean GARCIA RIGHT HAND [facility] INITIAL ENCOUNTER [id number] ABRASION 09-14-2016 A Taylor GARCIA LEFT KNEE [facility] INITIAL ENCOUNTER Z23 ENCOUNTER 09-14-2016 Sean MCGREGOR MD [facility] IMMUNIZATIO N J069 ACUTE UPPER 06-07-2016 [facility] RESPIRATORY INC INFECTION UNSPECIFIED 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 PHYSICIAN GROUP R109 UNSPECIFIED 04-17-2016 [place] ABDOMINAL [facility] PAIN INC R233 SPONTANEOUS 04-11-[address] [place] [address] [facility] P [id number] MIGRAINE 03-15-[address] [facility] W/AURA NOT PHYSICIANS INTRACT GROUP W/STATUS MIGRAINOSUS R161 SPLENOMEGAL 03-15-[address] [facility] Y NOT PHYSICIANS ELSEWHERE GROUP CLASSIFIED T148 OTHER 03-15-[address] [facility] INJURY OF PHYSICIANS UNSPECIFIED GROUP BODY REGION E669 OBESITY 01-22-[address] [facility] UNSPECIFIED PHYSICIANS GROUP H539 UNSPECIFIED 12-03-2015 [facility] R200 ANESTHESIA 12-03-2015 [facility] R5383 OTHER 12-03-2015 [facility] R635 ABNORMAL 12-03-[address] [place] [address] [facility] N803 ENDOMETRIOS 12-01-[address] [facility] IS OF PHYSICIANS PELVIC GROUP PERITONEUM R102 PELVIC AND 12-01-[address] [facility] PERINEAL PHYSICIANS PAIN GROUP B372 CANDIDIASIS 11-18-2015 [facility] [id number] PAIN IN 11-18-2015 [facility] M542 CERVICALGIA 11-18-2015 [facility] M549 DORSALGIA 11-18-2015 [facility] G8918 OTHER ACUTE 08-29-2015 [facility] POSTPROCEDU INC RAL PAIN R1011 RIGHT UPPER 08-29-2015 [place] [facility]ANT [facility] PAIN INC K811 CHRONIC 08-27-[address] [facility] CHOLECYSTIT PHYSICIANS IS GROUP K838 OTHER 08-17-[address] [facility] SPECIFIED PHYSICIANS DISEASES OF GROUP BILIARY TRACT D179 BENIGN 08-12-[address] [facility] LIPOMATOUS PHYSICIANS NEOPLASM GROUP UNSPECIFIED J029 ACUTE 08-01-[address] [facility] PHARYNGITIS PHYSICIANS GROUP UNSPECIFIED K219 GASTRO-ESOP 07-22-[address] [facility] H REFLUX PHYSICIANS DISEASE GROUP WITHOUT ESOPHAGITIS R1012 LEFT UPPER 07-22-[address] [facility] QUADRANT PHYSICIANS PAIN GROUP R112 NAUSEA WITH 07-22-[address] [facility] VOMITING PHYSICIANS UNSPECIFIED GROUP N736 FEMALE 07-08-[address] [facility] PELVIC PHYSICIANS PERITONEAL GROUP ADHESIONS POSTINFECTI VE [id number] CLUSTER 06-24-2015 [facility] UNS NOT INTRACTABLE N719 INFLAMMATOR 05-14-2015 DUANE CAI MD OF [facility]TER[place] UNSPECIFIED N939 ABNORMAL 03-13-2015 [facility] PHYSICIANS BLEEDING UNSPECIFIED 5693 HEMORRHAGE 10-30-[address] [facility] OF RECTUM PHYSICIANS AND ANUS GROUP 82107 ABDOMINAL 10-30-[address] [facility] PAIN, LEFT PHYSICIANS LOWER GROUP QUADRANT V7651 SPECIAL 10-30-[address] [facility] SCREENING PHYSICIANS FOR GROUP MALIGNANT NEOPLASMS [...] 03 -0 -0 .0 00 TE ti IA 70 7- 6- 00 01 ve OL [...] 20 93 0 8 MG TA B IA 23 09 09 90 30 00 RI [...] 03 -2 -2 .0 00 TE ti IA 70 8- 5- 00 01 ve OL [...] 03 -1 -1 .0 00 TE ti IA 70 9- 4- 00 01 ve OL [...] #3 0 93 MG 8 TA B IA 00 06 07 90 30 00 RI [...] 11 RT ZA 89 17 17 09 IA 0 81 PH IN AR E MA [...] MA CY TA BL #5 ET 84 IA 00 04 05 90 30 00 RI [...] 1 06 PH CE AR TA MA IN CY NO PH #3 EN 93 8 5- 32 5 IB 53 03 04 40 10 00 RI Ac UP 74 -1 -0 .0 00 TE ti RO 60 3- 7- 00 01 ve FE 46 20 20 17 AI N 50 17 17 50 D 60 1 07 PH 0 AR MG MA CY TA BL #3 ET 93 8 IA 00 03 04 90 30 00 RI [...] #3 50 93 8 MG TA B IA 00 02 03 90 30 00 RI [...] MG #3 TA 93 BL 8 ET IA 00 01 02 90 30 00 RI [...] 17 61 D TA 1 87 PH IN AR N- MA CA CY FF #3 [...] End Date Code Location Performer Type Date [facility] [place] [id number] [address] [facility] [place] [address] [address] [facility] [place] [facility] [address] [facility] [place] [address] [address] [facility] [place] [facility] [place] [facility] [place] [facility] 6 [facility] [place] - [address] 6 [facility]
--- OUTSIDE RECORDS SUMMARY | 2017-01-09 15:56 | External Medical Summary Rpt ---
Author Author [employer] Reyes, [employer] Organization [employer] Address Unknown Phone Unavailable
--- NOTE | 2017-01-09 16:52 | RADIOLOGY REPORT PS360 ---
CT HEAD W/O CONTRAST HISTORY: PAIN IN LEFT POSTERIOR HEAD, FACIAL NUMBNESS ORDERING PHYSICIAN: Iva Goodrich MD PATIENT AGE: 26 years COMPARISON: 06/30/2015 TECHNIQUE: Axial images obtained without contrast. Brain and bone windows reviewed. FINDINGS: No midline shift, mass effect, intracranial hemorrhage, hydrocephalus, or extra-axial fluid collection is evident. The calvarium has an unremarkable appearance. No mastoid effusion. There is mild lobular mucosal thickening of the left aspect of the sphenoid sinus. No sinus air-fluid level.. IMPRESSION: No acute intracranial findings.
--- NOTE | 2017-01-09 16:55 | RADIOLOGY REPORT PS360 ---
CT CERVICAL SPINE W/O CONT INDICATION: Pain in the back of the head and neck, PAIN IN LEFT POSTERIOR HEAD, FACIAL NUMBNESS ORDERING PHYSICIAN: Iva Goodrich MD PATIENT AGE: 26 years COMPARISON: None TECHNIQUE: Axial images are obtained without contrast. Sagittal and coronal reformatted images are reviewed as well. FINDINGS: There is normal alignment. There is reversal cervical lordosis which could be due to patient positioning or muscle spasm. Patient has a somewhat tilted toward the right. No fracture or dislocation. The disc spaces are well-preserved. No significant degenerative change There are few scattered small nodes in the neck. Lung apices are clear. IMPRESSION: 1. No acute finding. 2. Reversal of cervical lordosis which could be due to patient positioning or muscle spasm
[2017-01-09] MEDS ORDERED: NAPROXEN SODIU500 MG PO (17:14)
[2017-01-09 17:16] VITALS: BP 114/82
== END 2017-01-09 17:19 | disposition home or self-care (01) ==
LOC: ER 15:12
DX: G44.209 Tension-type headache, unspecified, not intractable (principal); I10 Essential (primary) hypertension; K21.9 Gastro-esophageal reflux disease without esophagitis; E11.9 Type 2 diabetes mellitus without complications

== ENCOUNTER → 2017-01-18 | Outpatient (CLI) | payer BC, MEDICAID ==
[~2017-01-18] MED LIST changes: +ETHINYL ESTRADI1 TA1 PO; +INDERAL10 MG PO; +LOSARTAN POTAS100 MG PO; +METOPROLOL SUCC50 M4 PO; +NAPROXEN SODIU500 MG PO; +PRAZOSIN HCL1 MG PO; +QUETIAPINE FUM200 M1 PO; +VENLAFAXINE150 M1 PO
--- NOTE | 2017-01-23 12:34 | RADIOLOGY REPORT PS360 ---
MRI-BRAIN W/O HISTORY: PARESTHESIA OF SKIN, ANESTHESIA OF SKINblurred vision. Dizziness. Numbness bilateral hands. Symptoms 3 months. No trauma. Intermittent occipital left side headache Patient Age: 26 years: Female Ordering Physician: Nelida CAZARES TECHNIQUE: Noncontrast Multiplanar FLAIR, T1, T2 weighted images along with axial diffusion/ADC imaging performed on 1.5 T. Siemens, MRI. COMPARISON :CT head without contrast 01/09/2017 FINDINGS . The patient has numerous scattered high signal foci throughout white matter of the cerebral hemispheres bilaterally.. These tend to be slightly more peripheral & more subcortical high signal foci rather than periventricular. Most are scattered 5 mm or smaller high signal foci scattered throughout cerebral hemispheres bilaterally.,. However would Particular note a rather linear collection of high signal foci superior left frontal lobe axial image 18,. This collection of high signal foci spanning overall 15 mm transverse length x 4 mm AP.. These located deep to the overlying sulcus here. .. In this age patient demyelinating disease would significant concern differential diagnosis.. Neurology consult suggested/recommended.. Other entities that could yield similar patterns include vasculitis; less likely.severe migraine history, drug abuse history included.. Early Onset small vessel microangiopathic disease unlikely without a history of vasculitis or other conditions in this younger age patient. You may want to consider a follow-up postcontrast study to exclude early enhancing lesions as might be encountered with metastatic disease but this unlikely. This pattern suspect for MS but requires clinical correlation There are no mass lesions evident. The patient is normal anatomy. Normal cranial cervical junction. The ventricles and basal cisterns appear normal. No subdural collection evident. Skull appears intact The posterior fossa appears normal unremarkable. Brainstem unremarkable. The sella unremarkable. Mastoid air cells well-developed and clear IACs symmetric unremarkable CP angles clear. Note is made of moderate mucosal thickening at the posterior left sphenoid sinus with scant mucosal thickening right sphenoid sinus. The maxillary sinuses & frontal sinuses clear. Mild deviation nasal septum convexity to the right. Upper normal mucosal thickness at ethmoid air cells. Orbits unremarkable. Optic nerve with normal signal the chiasm IMPRESSION 1. Numerous Scattered high signal foci throughout white matter of the cerebral hemispheres bilateral. Requires clinical correlation, but in this this age patient demyelinating disease would be a significant consideration, with other differential considerations discussed briefly in text . Neurology consult suggested/recommended 2. No mass lesions. Otherwise normal anatomy. Posterior fossa unremarkable. 3. Incidental paranasal sinus disease. Moderate focal mucosal thickening or retention cyst posterior sphenoid sinus
== END ==
LOC: RAD 08:45
DX: G44.52 New daily persistent headache (NDPH) (principal); R20.2 Paresthesia of skin; R20.0 Anesthesia of skin